=== PATIENT | female | born 1990 | race Two or more races ===

== ENCOUNTER 2017-05-19 06:05 | Emergency (ER) | payer OTHER ==
[~2017-05-19] VITALS: Ht 154.9 cm; Wt 54.4 kg
--- NOTE | ~2017-05-19 | EKG ---
PATIENT: JOZEF LIVINGSTON UNIT #: [id number] Ventricular Rate: 58 BPM Atrial Rate: 58 BPM P-R Interval: 160 ms QRS Duration: 78 ms Q-T Interval: 402 ms QTC Calculation(Bezet): 394 ms P [place]: 55 degrees Calculated R [place]: 82 degrees Calculated T [place]: 58 degrees Diagnosis Line: Sinus bradycardia Diagnosis Line: Otherwise normal ECG Diagnosis Line: No previous ECGs available Diagnosis Line: Confirmed by SCOTT BOTELLO MD ([id number]) on Diagnosis Line: 05/19/2017 1:36:27 PM INTERPRETING MD: AYAN REID
--- NOTE | ~2017-05-19 | CR72 ---
[facility]. [facility] A Service of [facility] & [facility] RADIOLOGY TEXT RESULTS PATIENT: JOZEF LIVINGSTON LOCATION: SED : 86 UNIT #: [id number] AGE: [address]: Dago Keller MD SEX: F ORDER DR: [id number] [place] [id number] MR#: [id number] Acc #: [id number] NAME: JOZEF LIVINGSTON : 1990 SEX: F STUDY DATE/TIME: 05/19/2017 6:36 UNIT: SED ROOM: STUDY DESCRIPTION: CR Chest Single View Portable Attending Physician: Dago Keller M.D. Ordering Physician: Alex Christine M.D. MEDICAL IMAGING REPORT This report is preliminary unless electronic signature is present. EXAM Portable chest HISTORY Shortness of breath, nausea, dizziness and generalized weakness for the past 2 days. TECHNIQUE Single AP view of the chest was obtained. FINDINGS A single AP portable view of the chest shows both lungs to be clear. The heart is normal in size. The mediastinal contour is normal. No significant bone abnormalities are seen. IMPRESSION Normal portable chest. Dictated by... Navid Claros M.D. THIS IS AN ELECTRONICALLY VERIFIED REPORT Navid Claros M.D. at 05/19/2017 3:38 PM Nelson TD: 05/19/2017 08:19 JOB #: [id number] MEDICAL IMAGING REPORT Page 1 of 1
[2017-05-19] MEDS ORDERED: NO MEDICATIONS (06:13)
[2017-05-19 06:47] LABS: BASOPHIL% 1.1 % (0-2.5); DIFF IND NO; HEMATOCRIT 38.9 % (35.0-45.0); HEMOGLOBIN 13.5 gm/dL (12.0-16.0); LYMPHOCYTE# 1.9 X10e3 (1.0-3.5); LYMPHOCYTE% 46.2 % (17.0-45.0); MEAN CELL VOLUME 93.6 FL (83-96); MEAN CORPUSCULAR HEMOGLOBIN 32.4 PG (28-34); MEAN CORPUSCULAR HGB CONC 34.6 g/dL (30-36); MEAN PLATELET VOLUME 10.3 FL (6.5-11.5); MONOCYTE# 0.5 X10e3 (0-1.0); MONOCYTE% 11.7 % (3.0-12.0); NEUTROPHIL# 1.6 X10e3 (1.5-7.1); PLATELET COUNT 173 X10e3 (140-420); RED BLOOD COUNT 4.16 X10e (3.90-5.30); WHITE BLOOD COUNT 4.1 X10e3 (4.0-10.5)
[2017-05-19 07:03] LABS: ALBUMIN SERUM 4.3 g/dL (3.5-5.0); BILIRUBIN, DIRECT 0.1 mg/dL (0.0-0.2); BILIRUBIN,INDIRECT 0.8 mg/dL (0.0-0.9); BILIRUBIN,TOTAL 0.9 mg/dL (0.2-2.0); BUN/CREATININE RATIO 21.66; CALCIUM SERUM 8.9 mg/dL (8.4-10.2); CREATININE SERUM 0.6 mg/dL (0.6-1.4); POTASSIUM 3.8 mmol/L (3.5-5.1); PROTEIN TOTAL SERUM 7.4 g/dL (6.0-8.3)
[2017-05-19 07:08] LABS: POC - CKMB <1.0 ng/mL (0.0-7.9)
[2017-05-19 07:09] LABS: POC - TROPONIN <0.05 ng/mL (<=0.05)
[2017-05-19 09:18] LABS: AMPHETAMINE NEG (NEG); BARBITURATES NEG (NEG); BENZODIAZEPINES NEG (NEG); COCAINE NEG (NEG); MARIJUANA NEG (NEG); OPIATES NEG (NEG); TRICYCLIC ANTIDEPRESSANTS NEG (NEG); U METHADONE NEG (NEG)
== END 2017-05-19 09:12 | disposition home or self-care (01) ==
LOC: SED 06:05
PROVIDERS: Emergency Medicine
DX: R06.02 Shortness of breath (principal); R42 Dizziness and giddiness; Z88.1 Allergy status to other antibiotic agents
CPT/HCPCS: 36415; 71010; 80048; 80076; 80307; 82553; 82947; 84484; 84703; 85025; 93005; 99285